=== PATIENT | female | born 1995 | race Caucasian/White ===

== ENCOUNTER 2019-05-11 15:39 | Emergency (ER) | payer BC ==
[~2019-05-11] VITALS: Ht 162.6 cm; Wt 59.0 kg
[2019-05-11] MEDS ORDERED: DiphenhydrAMINE 50mg/ml Inj ONE (15:54)
[2019-05-11] MEDS ORDERED: Solu-MEDROL 125mg Inj ONE (15:54)
[2019-05-11] MEDS ORDERED: DiphenhydrAMINE 50mg/ml Inj IVP ONE (16:00)
[2019-05-11] MEDS ORDERED: Solu-MEDROL 125mg Inj IVP ONE (16:00)
[2019-05-11 16:03] VITALS: BP 128/71
[2019-05-11] MEDS ORDERED: Morphine Sulfate 2mg/ml Inj(IV/IM USE ONLY) ONE (16:08)
[2019-05-11] MEDS ORDERED: Morphine Sulfate 2mg/ml Inj(IV/IM USE ONLY) IVP ONE (16:15)
[2019-05-11 16:48] LABS: BASOPHILS % (AUTO) 1.1 % (0.0-2.0); EOSINOPHILS % (AUTO) 1.7 % (0.0-3.0); HEMATOCRIT 41.5 % (37.0-47.0); HEMOGLOBIN 14.6 G/DL (12.0-16.0); LYMPHOCYTES % (AUTO) 47.1 % (20.0-45.0); MEAN CORPUSCULAR VOLUME 87 FL (80-99); MONOCYTES % (AUTO) 9.2 % (1.0-10.0); PLATELET COUNT 208 K/UL (150-450); RED BLOOD COUNT 4.77 M/UL (4.20-5.40); RED CELL DISTRIBUTION WIDTH 10.6 % (11.6-14.8); WHITE BLOOD COUNT 8.8 K/UL (4.8-10.8)
[2019-05-11 16:57] LABS: ANION GAP 16 mmol/L (5-15); BLOOD UREA NITROGEN 8 mg/dL (7-18); CARBON DIOXIDE 23 MMOL/L (21-32); CHLORIDE 103 MMOL/L (98-107); CREATININE 0.8 MG/DL (0.55-1.30); POTASSIUM 2.9 MMOL/L (3.5-5.1); SODIUM 142 MMOL/L (136-145)
--- NOTE | 2019-05-11 17:00 | Diagnostic Imaging Report ---
Indications: Headache Technique: Spiral acquisitions obtained through the brain. Angled axial and coronal 5 x 5 mm slices were reconstructed. Total dose length product 1326.82 mGycm. CTDI vol(s) 70.38 mGy. Dose reduction achieved using automated exposure control Comparison: None. Findings: No acute intracranial hemorrhage or edema. No mass effect nor midline shift. Normal magallanes-white differentiation. Normal-sized ventricles and extra axial CSF spaces. The mastoids are clear. The calvarium is intact. Impression: Negative The CT scanner at [facility] is accredited by the [employer] and the scans are performed using protocols designed to limit radiation exposure to as low as reasonably achievable to attain images of sufficient resolution adequate for diagnostic evaluation.
[2019-05-11 17:02] LABS: ALANINE AMINOTRANSFERASE 14 U/L (12-78); ALBUMIN 4.4 G/DL (3.4-5.0); ALBUMIN/GLOBULIN RATIO 1.4 (1.0-2.7); ALKALINE PHOSPHATASE 41 U/L (46-116); ASPARTATE AMINO TRANSFERASE 19 U/L (15-37); BILIRUBIN,TOTAL 0.3 MG/DL (0.2-1.0)
--- NOTE | 2019-05-11 17:22 | Emergency Room Report ---
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 She states that she is received epinephrine for it in the past as a child. Patient accidentally ate a salad with knots today about 30 minutes prior to arrival. She drank about 100 mg of Benadryl subsequently started to vomit and came here for further evaluation. Patient is complaining of hives and rash throughout her body. She states that she also feels short of breath. She states that there has been a change in her voice and she is having difficulty breathing. No other complaints were noted. Symptoms noted to be highly severe to critical. Patient is accompanied by her mother. No other modifying factors. No other associated signs and symptoms. No other complaints were noted. Allergies: Coded Allergies: No Known Allergies (Unverified , 05/11/19) Patient History Past Medical History: other - Allergic reaction to nut, anaphylaxis Past Surgical History: none Pertinent Family History: none Social History: Denies: smoking, alcohol use, drug use Last Menstrual Period: unknown Reviewed Nursing Documentation: PMH: Agreed; PSxH: Agreed Nursing Documentation-PMH Past Medical History: No Stated History Review of Systems All Other Systems: negative except mentioned in HPI Physical Exam Vital Signs Date Time Temp Pulse Resp B/P (MAP) Pulse Ox O2 Delivery O2 Flow Rate FiO2 05/11/19 15:44 98.2 95 11 110/78 (89) 79 Room Air Sp02 EP Interpretation: reviewed, abnormal - Interpreted to be low by me General Appearance: alert, severe distress Head: normocephalic, atraumatic Eyes: bilateral eye normal inspection ENT: hearing grossly normal, moist mucus membranes, pharyngeal erythema, other - Change in voice muffled Neck: normal inspection, full range of motion, supple, no bony tend Respiratory: respiratory distress, decreased breath sounds Cardiovascular #1: regular rate, rhythm, no edema Gastrointestinal: normal inspection, normal bowel sounds, non tender, soft, no guarding, no hernia Genitourinary: no CVA tenderness Musculoskeletal: normal inspection, back normal, normal range of motion Neurologic: normal inspection, alert, responsive, other - Decreased speech with muffled voice Psychiatric: judgement/insight normal, anxious Skin: other - Diffuse urticaria throughout the body Procedures Critical Care Time Critical Care Time Patient had a critical medical condition which untreated could potentially result in life or limb threatening injury. Total critical care time excluding procedures was approximately 45 minutes. Medical Decision Making Diagnostic Impression: Primary Impression: Allergic reaction Additional Impression: Anaphylaxis ER Course Patient presents emergency department today with acute allergic reaction. Patient had a change in voice. Differential diagnoses include anaphylaxis, severe allergic reaction, urticaria just name a few. Patient's exam is consistent with severe anaphylaxis. Patient's O2 sat duration was initially very low. Patient appears short of breath and patient also appeared to have severe urticaria. Because of his presentation patient had an IV established was given epinephrine 0.1 mg x 2. After which patient's voice did improve. Patient's rash improved as well and respiratory exam improved. Patient's blood pressure remained stable the entire time of the administration of epinephrine. O2 sat ration improved to 100%. However after receiving the second dose epinephrine patient developed some headache. Because of the acute onset of headache in light of the menstruation epinephrine I was worried about a possibility of a subarachnoid hemorrhage. Patient received IV morphine 2 mg and then had a head CT performed emergently. Head CT was noted to be negative. Patient's laboratory work-up was also negative. Patient was monitored in the emergency department and had no further episodes of allergic reaction symptoms are significantly improved O2 saturation was stable the entire time. And patient's headache resolved. Given patient's headache resolved and she is back to baseline felt that no further work-up is indicated at this time. Patient was given prescription for steroids Benadryl Pepcid and EpiPen. Patient is advised to follow up with primary doctor in 2-3 days and return the emergency room for any worsening symptoms and as needed. Labs Test 05/11/19 16:32 White Blood Count 8.8 K/UL (4.8-10.8) Red Blood Count 4.77 M/UL (4.20-5.40) Hemoglobin 14.6 G/DL (12.0-16.0) Hematocrit 41.5 % (37.0-47.0) Mean Corpuscular Volume 87 FL (80-99) Mean Corpuscular Hemoglobin 30.7 PG (27.0-31.0) Mean Corpuscular Hemoglobin Concent 35.3 G/DL (32.0-36.0) Red Cell Distribution Width 10.6 % (11.6-14.8) Platelet Count 208 K/UL (150-450) Mean Platelet Volume 6.1 FL (6.5-10.1) Neutrophils (%) (Auto) 41.0 % (45.0-75.0) Lymphocytes (%) (Auto) 47.1 % (20.0-45.0) Monocytes (%) (Auto) 9.2 % (1.0-10.0) Eosinophils (%) (Auto) 1.7 % (0.0-3.0) Basophils (%) (Auto) 1.1 % (0.0-2.0) Prothrombin Time 10.7 SEC (9.30-11.50) Prothromb Time International Ratio 1.0 (0.9-1.1) Activated Partial Thromboplast Time SEC (23-33) Sodium Level 142 MMOL/L (136-145) Potassium Level 2.9 MMOL/L (3.5-5.1) Chloride Level 103 MMOL/L (98-107) Carbon Dioxide Level 23 MMOL/L (21-32) Anion Gap 16 mmol/L (5-15) Blood Urea Nitrogen 8 mg/dL (7-18) Creatinine 0.8 MG/DL (0.55-1.30) Estimat Glomerular Filtration Rate > 60 mL/min (>60) Glucose Level 145 MG/DL (74-106) Calcium Level 9.0 MG/DL (8.5-10.1) Total Bilirubin 0.3 MG/DL (0.2-1.0) Aspartate Amino Transf (AST/SGOT) 19 U/L (15-37) Alanine Aminotransferase (ALT/SGPT) 14 U/L (12-78) Alkaline Phosphatase 41 U/L (46-116) Total Protein 7.5 G/DL (6.4-8.2) Albumin 4.4 G/DL (3.4-5.0) Globulin 3.1 g/dL Albumin/Globulin Ratio 1.4 (1.0-2.7) Chest X-Ray Diagnostic Results Chest X-Ray Diagnostic Results : Chest X-Ray Ordered: Yes # of Views/Limited/Complete: 1 View Indication: Shortness of Breath EP Interpretation: Yes Interpretation: no consolidation, no effusion, no pneumothorax, no acute cardiopulmonary disease Impression: No acute disease Electronically Signed by: Electronically signed by Nain Mitchell MD CT/MRI/US Diagnostic Results CT/MRI/US Diagnostic Results : Imaging Test Ordered: CT head: Negative Last Vital Signs Date Time Temp Pulse Resp B/P (MAP) Pulse Ox O2 Delivery O2 Flow Rate FiO2 05/11/19 16:42 98.2 05/11/19 16:03 93 15 128/71 99 Room Air Status: improved Disposition: HOME, SELF-CARE Condition: Stable Scripts Epinephrine (Epipen 2-Geraldo) 0.3 Mg/0.3 Ml Auto.injct 0.3 MG IM ONCE for allergy, #1 EA Prov: Nain Mitchell MD 05/11/19 Diphenhydramine Hcl* (BENADRYL*) 25 Mg Capsule 50 MG ORAL Q6H PRN for Itching, #20 CAP Prov: Nain Mitchell MD 05/11/19 Famotidine (PEPCID AC) 20 Mg Tablet 20 MG PO BID for 7 Days, TAB Prov: Nain Mitchell MD 05/11/19 Methylprednisolone (Methylprednisolone*) 4MG Dspk 4 MG ORAL DIRECTED for 6 Days, #21 EA 0 Refills Day 1: Two tablets before breakfast, one after lunch, one after dinner, and two at bedtime. If started late in the day, take all six tablets at once or divide into two or three doses, unless otherwise directed by prescriber. Day 2: One tablet before breakfast, one after lunch, one after dinner, and two at bedtime Day 3: One tablet before breakfast, one after lunch, one after dinner, and one at bedtime Day 4: One tablet before breakfast, one after lunch, and one at bedtime Day 5: One tablet before breakfast and one at bedtime Day 6: One tablet before breakfast Prov: Nain Mitchell MD 05/11/19 Nain Mitchell MD May 11, 2019 17:22
[2019-05-11 17:41] VITALS: BP 112/61
[2019-05-11] MEDS ORDERED: BENADRYL25 MG ORAL (17:42)
[2019-05-11] MEDS ORDERED: PEPCID AC20 M2 PO (17:42)
[2019-05-11] MEDS ORDERED: EPIPEN 2-P0.3 MG/0.3 IM (17:42)
[2019-05-11] MEDS ORDERED: MEDROL DOSEPAK4 MG ORAL (17:42)
[2019-05-11 17:50] VITALS: BP 112/61
--- NOTE | 2019-05-11 18:28 | Diagnostic Imaging Report ---
Indication: Cough Technique: One view of the chest Comparison: none Findings: Lungs and pleural spaces are clear. Heart size is normal Impression: No acute process This agrees with the preliminary interpretation provided by the emergency room physician
== END 2019-05-11 17:50 | disposition home or self-care (01) ==
LOC: EMR 16:23
DX: T78.40XA Allergy, unspecified, initial encounter (principal); X58.XXXA Exposure to other specified factors, initial encounter; T78.2XXA Anaphylactic shock, unspecified, initial encounter; Z91.018 Allergy to other foods
CPT/HCPCS: 36415; 70450; 71045; 80053; 85025; 85610; 85730; 96374; 96375; 99291; J0171; J1200; J2270; J2930; S0028